=== PATIENT | male | born 1945 | race Two or more races ===

== ENCOUNTER → 2017-07-09 | Outpatient (CLI) | payer OTHER | END | disposition home or self-care (01) | LOC: RAD 10:36 | DX: M17.11 Unilateral primary osteoarthritis, right knee (principal); M11.261 Other chondrocalcinosis, right knee; Z91.81 History of falling | CPT/HCPCS: 73560 ==

== ENCOUNTER → 2018-08-26 | Outpatient (CLI) | payer OTHER ==
[~2018-08-26] MED LIST: REGADENOSON 0.4 MG/5 ML DISP.SYRIN. IV ONE
--- NOTE | 2018-08-26 12:39 | CARD ---
MR#: [id number] Date of Study: 08/26/2018 Ordering Physician: OSKAR ALLEN, Referring Physician: OSKAR ALLEN, Tech: Mariam Weiss APPROVED REPORT EXAM: Two-dimensional and M-mode echocardiogram with Doppler and color Doppler. Other Information Quality : AverageHR: 101bpm INDICATION Dyspnea 2D DIMENSIONS RVDd3.5 (2.9-3.5cm)Left Atrium(2D)3.9 (1.6-4.0cm) IVSd1.3 (0.7-1.1cm)Aortic Root(2D)2.6 (2.0-3.7cm) LVDd5.0 (3.9-5.9cm)LVOT Diameter2.0 (1.8-2.4cm) PWd1.3 (0.7-1.1cm)LVDs2.9 (2.5-4.0cm) FS (%) 42.2 %SV85.2 ml LVEF(%)73.0 (>50%) Aortic Valve AoV Peak Sony.137.4cm/Bright Peak GR.7.5mmHg LVOT Peak Sony.116.6cm/sLVOT VTI 20.07cm FRANTZ (VMAX)2.16cm2 Pulmonary Valve PV Peak Xljtahkw632.8cm/sPV Peak Grad.8mmHg Tricuspid Valve TR P. Ixnimqhr828kl/sRAP HRNVPOJE0fwBt TR Peak Gr.43obVsGAZL74buNb Pulmonary Vein S1 Maakyhff82.8cm/sD2 Rkhuwdcm51.3cm/s PVa [id number] LEFT VENTRICLE The left ventricle is normal size. There is mild to moderate concentric left ventricular hypertrophy. The left ventricular systolic function is normal and the ejection fraction is within normal range. T he Ejection Fraction is >55%. There is normal LV segmental wall motion. Tissue Doppler imaging reveal s moderate left ventricular diastolic dysfunction. RIGHT VENTRICLE The right ventricle is borderline dilated. There is normal right ventricular wall thickness. The righ t ventricular systolic function is normal. ATRIA The left atrium size is normal. The right atrium size is normal. The interatrial septum is intact wit h no evidence for an atrial septal defect or patent foramen ovale as noted on 2-D or Doppler imaging. AORTIC VALVE The aortic valve is normal in structure and function. Doppler and Color Flow revealed no significant aortic regurgitation. There is no significant aortic valvular stenosis. MITRAL VALVE The mitral valve is normal in structure and function. There is no evidence of mitral valve prolapse. There is no mitral valve stenosis. Doppler and Color-flow revealed trace mitral regurgitation. TRICUSPID VALVE The tricuspid valve is normal in structure and function. Doppler and Color Flow revealed trace tricus pid regurgitation with an estimated PAP of 37 mmHg. There is no tricuspid valve stenosis. PULMONIC VALVE Doppler and Color Flow revealed no pulmonic valvular regurgitation. There is no pulmonic valvular danyel nosis. GREAT VESSELS The aortic root is normal in size. The IVC is normal in size and collapses >50% with inspiration. PERICARDIAL EFFUSION There is a trace circumferential pericardial effusion. Critical Notification Critical Value: No <Conclusion> The left ventricular systolic function is normal and the ejection fraction is within normal range. Th e Ejection Fraction is >55%. There is normal LV segmental wall motion. The right ventricle is borderline dilated. Signed by : Jerod Waite, Electronically Approved : 08/26/2018 12:38:47
--- NOTE | 2018-08-26 13:17 | RAD ---
MR#: [id number] Date of Study: 08/26/2018 Ordering Physician: OSKAR ALLEN, Referring Physician: CA CANTU Tech: BRAD Keller ARRT (R) (N) APPROVED REPORT Test Type: Pharmacological Stress Nurse/Tech: Tamela Mcgee RN Test Indications: Chest pain Cardiac History: High cholesterol, Hypertension, Diabetes Medications: See Electronic Medical Record Medical History: See Electronic Medical Record Resting ECG: ST with PVCs Resting Heart Rate: 109 bpm Resting Blood Pressure: 156/78mmHg Pretest Chest Pain: No chest pain Nurse/Tech Notes S1,S2 and lungs are clear to auscultation. Consent: The procedure was explained to the patient in lay terms. Informed consent was witnessed. Hieu eout was entered into [employer]. History and Stress Test performed by BRAD Keller, WU (R) (N) Pharm. Details Pharmacologic stress testing was performed using 0.4mg per 5ml of regadenoson given intravenously ove r 7-10 seconds. Stress Symptoms Dyspnea,slight pressure at beginning of test that resolved quickly. POST EXERCISE Reason for Termination: Infusion complete Target HR: No Max HR: 123 bpm Max Blood Pressure: 151/65mmHg Blood Pressure response to exercise: Normal blood pressure response during stress. Heart Rate response to exercise: WNL Chest Pain: No. Arrhythmia: Yes. PVCs ST Change: No. INTERPRETATION Stress EKG Conclusion: Baseline EKG showed sinus rhythm. No ischemic changes at peak stress. No arr hythmias. Imaging Protocol IMAGE PROTOCOL: Rest Tc-99m/stress Tc-99m 1 day Rest: Stress: Viability: Radiopharm.Tc99m JriwfbwzkJd89p Sestamibi Svay14kDs 33mCi Img Date 08/26/2018 08/26/2018 Inj-Img Yzih44fsf. 60min. Rest Admin Site:IV - Right AntecubitalAdministrator:BRAD Keller ARRT (R)(N) Stress Admin Site: IV - Right AntecubitalAdministrator: Cheyenne Anderson, RT (R)(N) STRESS DATA End Diast. Vol.95.0mlAv. Heart Nkzn332.0bpm End Syst. Vol.24.0mlCO Index BSA7.2L/min Myocardial Zdjd380.0gEject. Wrhmyncp69.0% Stress Rates Pk. Fill Rate4.61EDV/secLVtime Pk. Fill 131.90msec Pk. Empty Rate4.31ESV/secLVtime Pk. Vvrrt032.22msec 1/3 Pk. Fill2.01EDV/sec Stress Scores Regional WT0.00Summed WT2.00 Regional WM0.00Summed WM2.00 Study quality was good. Left Ventricular size was Normal at Rest and Stress. Lung uptake was . Left Ventricular ejection fraction is 75%. LV Perf. Quant 17 Seg. SSS1.00 17 Seg. SRS5.00 17 Seg. SDS1.00 Stress Defect Extent (% LAD)0.00Rest Defect Extent (% LAD)8.10Rev. Defect Extent (% LAD)0.00 Stress Defect Extent (% LCX) 0.00Rest Defect Extent (% LCX)0.00Rev. Defect Extent (% LCX)0.00 Stress Defect Extent (% RCA)0.00Rest Defect Extent (% RCA)0.00Rev. Defect Extent (% RCA)0.00 Stress Defect Extent (% ROWDY)0.00Rest Defect Extent (% ROWDY)4.10Rev. Defect Extent (% ROWDY)0.00 Conclusion 1. Regadenoson cardioisotope stress test did not show any evidence of ischemia or infarct. 2. Normal left ventricular systolic function with ejection fraction calculated at 75%. 3. Low risk for cardiac events. Signed by : Oskar Allen, Electronically Approved : 08/26/2018 13:17:14
--- NOTE | 2018-09-02 14:43 | EKG ---
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 There were very few supraventricular ectopic beats. No significant arrhythmias were seen. CONCLUSIONS Holter monitor did not show any significant arrhythmias. Electronically Signed On 09-09-2018 12:27:42 CDT by Oskar Lomas
== END | disposition home or self-care (01) ==
LOC: NM 08:04
PROVIDERS: ATTEND Internal Medicine Cardiovascular Disease
DX: I11.9 Hypertensive heart disease without heart failure (principal); I25.10 Atherosclerotic heart disease of native coronary artery without angina pectoris; E78.00 Pure hypercholesterolemia, unspecified; E11.9 Type 2 diabetes mellitus without complications
CPT/HCPCS: 78452; 93017; 93225; 93306; A9500; J2785; 93226

== ENCOUNTER → 2019-03-16 | Outpatient (CLI) | payer OTHER ==
[~2019-03-16] MED LIST changes: +CHOL500050 PO; +INSU100V6 SQ; +INSU3INS2 SQ; +LISI1TAB20 PO; +MELO15TA23 PO; +METF500T16 PO; +METO1TAB33 PO; +METO25TA2 PO; +OMEP20TA63 PO; -REGADENOSON 0.4 MG/5 ML DISP.SYRIN. IV ONE; +SIMV40TA18 PO
--- NOTE | 2019-03-16 15:48 | NUR ---
PT HAS [employer] INSUR[employer] AND LABS CANNOT BE DONE HERE. DAUGHTER TRANSLATED. COPY OF ORDER GIVEN WITH LABS HIGHLIGHTED AND FAX NUMBER TO SEND RESULTS TO GIVEN TO TAKE TO PCP TO BE DONE. MRSA EKG, AND CXR DONE HERE. VOICES COMPREHENSION OF ALL.
--- NOTE | 2019-03-17 08:14 | EKG ---
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
--- NOTE | 2019-03-17 10:37 | RAD ---
CHEST PA LATERAL History: Preoperative evaluation for right knee surgery. Comparison: None. Findings: Frontal and lateral views of the chest were obtained. The cardiomediastinal silhouette is normal. Pulmonary vasculature is normal. The lungs are clear with no focal infiltrate. Subtle interstitial thickening of lung ralph suggested and is likely chronic. No pleural effusion or pneumothorax is seen. There is no acute bone abnormality. IMPRESSION: No acute cardiopulmonary process. Electronically signed by: Zan Dale MD (03/17/2019 10:34 AM) [facility]
== END | disposition home or self-care (01) ==
LOC: SURGPAT 13:56
PROVIDERS: ATTEND Orthopaedic Surgery Sports Medicine
DX: Z01.818 Encounter for other preprocedural examination (principal); M17.11 Unilateral primary osteoarthritis, right knee
CPT/HCPCS: 36415; 71046; 87641; 93005